=== PATIENT | female | born 1940 | race Caucasian/White ===

== ENCOUNTER → 2018-08-06 | Outpatient (CLI) | payer OTHER ==
--- NOTE | 2018-08-06 11:00 | CPEEG ---
ELECTROENCEPHALOGRAM. DATE OF STUDY: 08/06/2018 DATE OF INTERPRETATION: 08/06/2018 INTERPRETATION: Normal EEG during wakefulness and partial sleep. There were no potentially epilepto genic abnormalities present in the recording. REPORT: This EEG contains 9-10 Hz alpha activity to the posterior head regions. There was no abnorm al activation at rest, during photic stimulation or hyperventilation. The patient intermittently bec raul drowsy and fell into light sleep during the study. There was no abnormal activation during drows iness, light sleep or during times of arousal. /[id number]/MODL
== END ==
LOC: FCPNEURO 07:49
PROVIDERS: ATTEND Physician Assistant Medical
DX: R47.89 Other speech disturbances (principal); R20.2 Paresthesia of skin

== ENCOUNTER → 2018-08-07 | Outpatient (CLI) | payer OTHER | LOC: FIMAGING 07:57 | PROVIDERS: ATTEND Physician Assistant Medical | DX: R20.2 Paresthesia of skin (principal); R47.89 Other speech disturbances; G31.9 Degenerative disease of nervous system, unspecified ==